=== PATIENT | female | born 1960 | race Caucasian/White ===

== ENCOUNTER → 2019-05-13 08:12 | Outpatient (CLI) | payer OTHER ==
[2012-01-15 15:08] VITALS: BMI 19.0
== END | disposition home or self-care (01) ==
LOC: D.HCCECHO 08:12 → D.HCCARDIO 09:00
PROVIDERS: ATTEND Internal Medicine Cardiovascular Disease
DX: R01.1 Cardiac murmur, unspecified (principal)